=== PATIENT | female | born 1990 ===

== ENCOUNTER 2016-12-01 03:53 | Inpatient (IN) | payer OTHER ==
[~2016-12-01] VITALS: Ht 157.5 cm; Wt 64.4 kg
[2016-12-01 08:16] LABS: ABSOLUTE BASOPHIL COUNT 0 /CUMM (0.0-0.2); ABSOLUTE EOSINOPHIL COUNT 0 /CUMM (0.0-0.7); ABSOLUTE GRANULOCYTE CT 10.6 /CUMM (1.4-6.5); ABSOLUTE MONOCYTE COUNT 0.4 /CUMM (0.10-0.60); BASOPHIL % 0.1 % (0.0-2.0); EOSINOPHIL % 0 % (0-5); GRANULOCYTE % 87.9 % (42.2-75.2); HEMATOCRIT 36.7 % (37-47); MEAN CORPUSCULAR HGB 29.6 PG (27.0-31.0); MEAN CORPUSCULAR VOLUME 89.6 FL (81.0-99.0); MEAN PLATELET VOLUME 7.8 FL (7.4-10.4); PLATELET COUNT 264 /CUMM (130-400); RBC DISTRIBUTION WIDTH 13.6 % (11.5-14.5)
--- NOTE | 2016-12-01 12:29 | History & Physical ---
General Information and HPI MD Statement: I have seen and personally examined JAIME VASQUEZ and documented this H&P. The patient is a 26 year old female at [38] weeks and 4 days gestation who presented with a chief complaint of [ctx]. Source of Information: patient, family Exam Limitations: no limitations History of Present Illness: 26-year-old 1 para 0 at 38 weeks and 4 days presented early this a.m. with complaint of contractions. Allergies/Medications Allergies: Coded Allergies: No Known Allergies (12/01/16) Compliance With Home Meds: GOOD Past History addiction psychiatrist History : 1 Para: 0 Last Menstrual Period: 10.8.16 Estimated Delivery Date: 12.11 Past addiction psychiatrist History: none Medical History Blood Transfusion Hx: No Neurological: NONE Cardiovascular: NONE Respiratory: NONE Gastrointestinal: NONE Hepatic: NONE Renal: NONE Musculoskeletal: NONE Psychiatric: NONE Endocrine: NONE Blood Disorders: NONE Cancer(s): NONE GLASS POLISHER/Reproductive: NONE Surgical History Pertinent Surgical History: none Review of Systems Review of Systems Constitutional: Reports: no symptoms. EENTM: Reports: no symptoms. Cardiovascular: Reports: no symptoms. Respiratory: Reports: no symptoms. GI: Reports: no symptoms. Genitourinary: Reports: no symptoms. Musculoskeletal: Reports: no symptoms. Skin: Reports: no symptoms. Neurological/Psychological: Reports: no symptoms. Hematologic/Endocrine: Reports: no symptoms. Immunologic/Allergic: Reports: no symptoms. All Other Systems: Reviewed and Negative Exam & Diagnostic Data Obstetric Exam Wgt Gained During : 20 Pelvimetry: appears adequate Dilation (cm): 5 Effacement (%): 90 Station: 0 Membranes: intact Fluid: unknown Fundal Height (cm): 38 Multiple Gestation? No Contractions: q5-7 Infant #1 - FHR Baseline: 120 Category: 1 Estimated Weight: 6-7lbs Presentation: vtx Patient for Induction? No Labs Blood Type & Rh: A positive Antibody Screen: Negative Hct/Hgb & Platelets #1: 13.4, 39.2, 269 Hct/Hgb & Platelets #2: 11.3, 36, 262 Rubella: Nonimmune VDRL #1: Negative VDRL #2: Negative HbsAg: Negative HIV #1: Negative HIV #2 Negative 1 Hr P Group B Strep: Negative Initial Ultrasound: 7 weeks and 5 days Anatomy Ultrasound: 17 weeks and 1 day normal growth and amniotic fluid there was an echogenic cardiac focus and a normal echo that followed Genetic Testing: Normal nuchal translucency and found to be low risk for trisomy 2113 and 18, low risk quad screen, negative hemoglobin electrophoresis Assessment/Plan Assessment/Plan: 26-year-old 1 para 0 who presented in early labor at her 4:00 this morning she was found to be 3 cm. After period of observation she did not change her cervix and she was admitted for 23 hour observation for therapeutic rest. He was given 100 mg of Vistaril and 10 mg of morphine IM. Several hours later she was found to be 5 cm. She was then admitted. Routine active management of labor was ordered. She will need rubella vaccine As Ranked By This Provider Problem List: 1. Core Measures/Miscellaneous Venous Thromboembolism VTE Risk Factors: / VTE Contraindications: No Contraindications VTE Diagnosis: No Beta Sumi Is Beta Sumi a Home Med? No Antibiotics Is Patient on Antibiotics? No
--- NOTE | 2016-12-01 14:01 | Labor & Delivery Summary ---
Delivery Summary Vaginal Delivery: Vaginal: VACUUM-ASSISTED VAGINAL DELIVERY SECONDARY TO MATERNAL REQUEST. Episiotomy/Lacerations: Episiotomy/Lacerations: SECOND-DEGREE LACERATION Repair: 3-0 Polysorb Anesthesia: Nesacaine Placenta: Placenta: spontanteous, normal, 3 vessel Anesthesia: block (SPINAL ANESTHETIC AT 8 CM, SUB) Apgars - 1 Min: 9 Apgars - 5 Min: 9 Additional Comments: 26-year-old 1 para 0 at 38 weeks and 4 days gestation who presented in early labor at her 4:00 this morning she was found to be 3 cm. After period of observation she did not change her cervix and she was admitted for 23 hour observation for therapeutic rest. SHe was given 100 mg of Vistaril and 10 mg of morphine IM. Several hours later she was found to be 5 cm. She was then admitted.When she became uncomfortable she requested Stadol and had declined an epidural. At 8 cm she spontaneously ruptured her membranes and she requested an epidural. A spinal anesthetic was only possible at that time. She became fully dilated. She had suboptimal pain control during second stage of labor. She requested a vacuum-assisted vaginal delivery secondary to severe pain in order to expedite delivery. Vacuum was applied at +4 station. The vacuum was applied for approximately 15 seconds. She pushed and delivered the head. Vacuum was removed. Shoulders were delivered without difficulty. The infant's body was delivered atraumatically. was dried and stimulated good cry was noted. was then bulb suctioned. was placed on the maternal abdomen. Cord was cut and clamped. Placenta was then delivered intact. Second degree laceration was repaired in the usual sterile fashion. The patient's pain tolerance was fair. She was given Toradol for pain.
[2016-12-01 17:06] VITALS: BP 97/52
[2016-12-02 10:41] LABS: ABSOLUTE BASOPHIL COUNT 0 /CUMM (0.0-0.2); ABSOLUTE EOSINOPHIL COUNT 0 /CUMM (0.0-0.7); ABSOLUTE GRANULOCYTE CT 13.6 /CUMM (1.4-6.5); ABSOLUTE LYMPH COUNT 1.5 /CUMM (1.2-3.4); BASOPHIL % 0.2 % (0.0-2.0); EOSINOPHIL % 0.2 % (0-5); GRANULOCYTE % 84.2 % (42.2-75.2); MEAN CORPUSCULAR HGB 30.2 PG (27.0-31.0); MEAN CORPUSCULAR HGB CONC 33.6 G/DL (33.0-37.0); MEAN CORPUSCULAR VOLUME 89.9 FL (81.0-99.0); MEAN PLATELET VOLUME 7.7 FL (7.4-10.4); PLATELET COUNT 215 /CUMM (130-400); RBC DISTRIBUTION WIDTH 13.3 % (11.5-14.5); WHITE BLOOD CELL COUNT 16.1 /CUMM (4.8-10.8)
--- NOTE | 2016-12-02 10:54 | PN- OBGYN ---
Surgical Brief Attending Note Brief Attending Note: NO COMPLAINTS. DOING WELL. NO COMPLAINTS. NURSING AND NORMAL LOCHIA. VSSAF FF@U EXT: NO CALF TENDERNESS OR EDEMA Laboratory Tests 12/02/16 0750: CBC w Diff Pending, WBC Pending, RBC Pending, Hgb Pending, Hct Pending, MCV Pending, MCH Pending, RDW Pending, Plt Count Pending, MPV Pending, PUBS MCHC Pending 12/01/16 0545: CBC w Diff NO MAN DIFF REQ, RBC 4.10 L, MCV 89.6, MCH 29.6, RDW 13.6, MPV 7.8, Gran % 87.9 H, Lymphocytes % 8.3 L, Monocytes % 3.7, Eosinophils % 0, Basophils % 0.1, Absolute Granulocytes 10.6 H, Absolute Lymphocytes 1.0 L, Absolute Monocytes 0.4, Absolute Eosinophils 0, Absolute Basophils 0, PUBS MCHC 33.0 Microbiology 12/01 1230 URINE ROUT: Urine Culture - RES AM CBC PENDING A/P PPD1. DOING WELL. ROUTINE POSTOP CARE. MMR DUE.
[2016-12-02 11:04] LABS: HEMATOCRIT 31.5 % (37-47)
[2016-12-03] MEDS ORDERED: IBUPROFEN800 M1 PO (09:28)
--- NOTE | 2016-12-03 09:35 | PN- OBGYN ---
Surgical Brief Attending Note Brief Attending Note: PPD#2 pt is ambulating, no complaints. tolerate diet, void without difficulties. PE: VSS CV RRR lungs CTA B/L Abdomen: soft, nontender, uterus firm , fundus below umbilicus, lochia mild Ext: DCT (-) A/P: 26 yo, s/p vaccum assisted VD, PPD#2 1. encourage ambulation and 2. pain management as needed 3. will d/c home, f/u in office in 2 wks and 6 wks 4.RT PP care
== END 2016-12-03 11:20 | DRG 775 ==
LOC: CBCO 03:53 → GNO 05:00
PROVIDERS: ADMIT Obstetrics & Gynecology
PROC: 10D07Z6 Extraction of Products of Conception, Vacuum, Via Natural or Artificial Opening (ICD-10-PCS; principal; 2016-12-01)
DX: O70.1 Second degree perineal laceration during delivery (principal); Z37.0 Single live birth; Z3A.38 38 weeks gestation of pregnancy
CPT/HCPCS: GNOS; 87086; J0595; J1885; J2270; J7120